=== PATIENT | female | born 1955 | race Caucasian/White ===

== ENCOUNTER 2017-06-26 06:45 | Day surgery (SDC) | payer OTHER, BC ==
[~2017-06-26] VITALS: Ht 165.1 cm; Wt 90.7 kg
[~2017-06-26 06:45] MED LIST: ALLOPURINOL300 MG PO; AMBIEN5 MG PO; AMIODARONE HCL200 MG PO; AMITRIPTYLINE H50 MG PO; AMITRIPTYLINE150 MG PO; ATORVASTATIN CA10 MG PO; B12; B12 5,000 MCG1 EACH PO; BACTRIM,SEPT1 TABLE1 PO; BACTRIM,SEPT1 TABLET PO; BIOTIN1000 MICRO PO; CALCIO DEL MAR500 MG PO; CALCITRIOL0.25 MCG PO; CALCIUM 600 +1 EAC3 PO; CALTRATE 600600 MG PO; CARDIZEM CD120 MG PO; CARDIZEM LA180 MG PO; CARDIZEM120 MG PO; CARDIZEM60 MG PO; CEFDINIR300 MG PO; COLACE100 MG PO; COUMADIN5 MG PO; COUMADIN7.5 MG PO; COZAAR50 MG PO; CRESTOR10 MG PO; CYANOCOBALAM1000 MCG PO; CYMBALTA30 MG PO; CYMBALTA60 MG PO; Coumadin,Jantoven PO; DAILY VALUE1 EACH PO; DAILY VITE1 EAC1 PO; DILAUDID2 MG PO; DIOVAN160 MG PO; ELAVIL25 MG PO; ELIQUIS5 MG PO; FERROUS SULFAT325 MG PO; FUROSEMIDE20 MG PO; GABAPENTIN100 MG PO; GABAPENTIN600 MG PO; HUMALOG100 UNIT/1 SC; IRON; JANUVIA25 M1 PO; KEPPRA750 MG PO; Keppra PO; LANTUS 10100 UNITS/ SC; LANTUS 3 M100 UNITS1 SC; LIPITOR10 MG PO; LIPITOR40 MG PO; LISINOPRIL2.5 MG PO; LO-DOSE ASPIRIN81 M1 PO; LOPRESSOR50 MG PO; LOVENOX100 MG/1 M SC; Lopressor PO; METOPROLOL SUCC25 MG PO; METOPROLOL TAR100 MG PO; MULTI VITAMIN; MULTIVITAMIN1 EAC1 PO; MYCELEX10 MG PO; MYFORTIC180 MG PO; MYFORTIC360 MG PO; Norco 7.5/325 PO; PAXIL10 MG PO; PAXIL20 MG PO; PREDNISONE10 MG PO; PROGRAF0.5 MG PO; PROGRAF1 MG PO; PROGRAF5 MG PO; PROTONIX40 MG PO; RENVELA800 MG PO; SANDIMMUNE100 MG PO; TACROLIMUS ANHYD1 MG PO; TOPROL XL50 MG PO; TYLENOL EXTRA500 MG PO; TYLENOL REGULA325 MG PO; ULORIC40 MG PO; VALCYTE450 MG PO; VASOTEC10 MG PO; VICODIN,LORT1 TABLET PO; VITAMIN B-12250 MCG PO; VITAMIN B12-FO1 EACH PO; VITAMIN C; VITAMIN D250000 UNIT PO; VITAMIN D31000 UNI2 PO; VITAMIN D50000 UNI1 PO; WARFARIN SODIU7.5 MG PO; WARFARIN SODIUM1 MG PO; WARFARIN SODIUM5 MG PO; Xarelto PO; ZITHROMAX Z-PA250 MG PO
[2017-06-26 07:21] VITALS: BP 123/60
[2017-06-26 07:30] LABS: POINT-OF-CARE METER ID UU14174212
[2017-06-26] MEDS ORDERED: PERCOCET 5/31 TABLET PO (10:18)
[2017-06-26] MEDS ORDERED: COLACE100 MG PO (10:18)
[2017-06-26] MEDS ORDERED: ANECREAM30 GM TP (10:18)
[2017-06-26 10:26] LABS: POINT-OF-CARE METER ID UU13113675
[2017-06-26 11:20] VITALS: BP 125/61
[2017-06-26 11:57] VITALS: BP 123/67
== END 2017-06-26 11:59 | disposition home or self-care (01) ==
LOC: SDC
PROVIDERS: Surgery
DX: K64.8 Other hemorrhoids (principal); K64.4 Residual hemorrhoidal skin tags; I12.9 Hypertensive chronic kidney disease with stage 1 through stage 4 chronic kidney disease, or unspecified chronic kidney disease; E11.22 Type 2 diabetes mellitus with diabetic chronic kidney disease; E11.42 Type 2 diabetes mellitus with diabetic polyneuropathy; N18.4 Chronic kidney disease, stage 4 (severe); Z99.2 Dependence on renal dialysis; Z94.0 Kidney transplant status; J44.9 Chronic obstructive pulmonary disease, unspecified; G47.33 Obstructive sleep apnea (adult) (pediatric); I48.91 Unspecified atrial fibrillation; M1A.9XX0 Chronic gout, unspecified, without tophus (tophi); Z98.84 Bariatric surgery status; E78.5 Hyperlipidemia, unspecified; E55.9 Vitamin D deficiency, unspecified; Z87.891 Personal history of nicotine dependence; Z79.82 Long term (current) use of aspirin; Z79.4 Long term (current) use of insulin; Z79.01 Long term (current) use of anticoagulants; Z88.0 Allergy status to penicillin
CPT/HCPCS: 82948; 88304; J0131; J1100; J1580; J2250; J2405; J2765; J3010; J7050; S0030

== ENCOUNTER 2018-03-14 16:04 | Observation (INO) | payer BC ==
[~2018-03-14] VITALS: Ht 165.1 cm; Wt 90.5 kg
[~2018-03-14 16:04] MED LIST changes: +AMITRIPTYLINE100 MG PO; -AMITRIPTYLINE150 MG PO; +ANECREAM30 GM TP; -HUMALOG100 UNIT/1 SC; +HUMALOG100 UNIT/2 SC; +PERCOCET 5/31 TABLET PO
[2018-03-14 16:29] LABS: HEMATOCRIT 40.8 % (36.0-46.0); HEMOGLOBIN 14.4 G/DL (11.9-15.5); MCH 31.2 PG (29.0-34.0); MCHC 35.3 G/DL (30.0-36.0); MCV 88.3 FL (83-99); PLATELET COUNT 190 K/uL (156-360); RBC DIS.WIDTH-CV 12.8 % (11.8-14.6); RED BLOOD COUNT 4.62 M/uL (3.80-5.20); WHITE BLOOD COUNT 8.3 K/uL (4.1-10.2)
[2018-03-14 16:38] LABS: CHLORIDE 103 mEq/L (99-109); POTASSIUM 4.8 mEq/L (3.7-5.4); SODIUM 139 mEq/L (136-147)
[2018-03-14 16:40] LABS: GLUCOSE 184 mg/dL (70-99)
[2018-03-14 16:44] LABS: CREATININE 1.7 mg/dL (0.6-1.3); GFR ESTIMATE (CALCULATED) 32 mL/min/
[2018-03-14 16:45] LABS: UREA NITROGEN (BUN) 14 mg/dL (9-23)
[2018-03-14 16:52] LABS: TROP-I INTERPRETATION NEGATIVE; TROPONIN-I < 0.01 ng/mL (0.0-0.30)
[2018-03-14] MEDS ORDERED: ULORIC40 MG PO (19:36)
[2018-03-14] MEDS ORDERED: LASIX20 MG PO (19:36)
[2018-03-14] MEDS ORDERED: COLCRYS0.6 MG PO (19:36)
[2018-03-14] MEDS ORDERED: ELIQUIS5 MG PO (19:36)
[2018-03-14] MEDS ORDERED: LOPRESSOR50 MG PO (19:36)
[2018-03-14 22:14] VITALS: BP 130/62
[2018-03-14 23:48] LABS: TROP-I INTERPRETATION NEGATIVE; TROPONIN-I < 0.01 ng/mL (0.0-0.30)
[2018-03-15 03:49] VITALS: BP 136/63
[2018-03-15 05:39] LABS: TROP-I INTERPRETATION NEGATIVE; TROPONIN-I 0.01 ng/mL (0.0-0.30)
[2018-03-15 05:44] LABS: CHLORIDE 105 MEQ/L (99-109); CREATININE 1.4 MG/DL (0.6-1.3); GFR ESTIMATE (CALCULATED) 40 mL/min/; GLUCOSE 161 mg/dL (70-99); POTASSIUM 4.3 MEQ/L (3.7-5.4); SODIUM 140 MEQ/L (136-147); UREA NITROGEN (BUN) 15 mg/dL (9-23)
[2018-03-15 07:15] VITALS: BP 126/62
[2018-03-15 11:19] VITALS: BP 154/72
== END 2018-03-15 14:23 | disposition home or self-care (01) ==
LOC: EME 16:04 → EXP 16:04 → 4SOUTH 21:42 → EDOF 21:42 → ENRESERV 21:43 → 4SOUTH 22:24
PROVIDERS: Hospitalist; Physician Assistant
DX: R07.9 Chest pain, unspecified (principal); I65.23 Occlusion and stenosis of bilateral carotid arteries; Z94.0 Kidney transplant status; I48.91 Unspecified atrial fibrillation; Z98.890 Other specified postprocedural states; G40.909 Epilepsy, unspecified, not intractable, without status epilepticus; E11.22 Type 2 diabetes mellitus with diabetic chronic kidney disease; I12.9 Hypertensive chronic kidney disease with stage 1 through stage 4 chronic kidney disease, or unspecified chronic kidney disease; N18.9 Chronic kidney disease, unspecified; E78.5 Hyperlipidemia, unspecified; J44.9 Chronic obstructive pulmonary disease, unspecified; Z99.81 Dependence on supplemental oxygen; G89.4 Chronic pain syndrome; H40.9 Unspecified glaucoma; Z98.84 Bariatric surgery status; Z90.710 Acquired absence of both cervix and uterus; Z90.49 Acquired absence of other specified parts of digestive tract; Z79.01 Long term (current) use of anticoagulants; Z79.4 Long term (current) use of insulin; Z79.899 Other long term (current) drug therapy; Z87.891 Personal history of nicotine dependence; Z88.0 Allergy status to penicillin; Z88.8 Allergy status to other drugs, medicaments and biological substances
CPT/HCPCS: 70450; 71046; 80048; 82948; 84484; 85027; 93005; 99281; 99284; G0378; J1815; J7030; J7507; J7518